=== PATIENT | female | born 1965 | race Caucasian/White ===

== ENCOUNTER 2017-10-21 09:43 | Emergency (ER) | payer SELFPAY ==
[~2017-10-21] VITALS: Ht 157.5 cm; Wt 77.1 kg
[2017-10-21 10:17] LABS: BASOPHILS # (AUTO) 0.1 10^3/uL (0.0-0.1); BASOPHILS % (AUTO) 1 % (0-10); EOSINOPHILS # (AUTO) 0.1 10^3/uL (0.0-0.3); EOSINOPHILS % (AUTO) 1 % (0-10); HEMATOCRIT 46 % (35-52); HEMOGLOBIN 16.4 G/DL (11.5-16.0); LYMPHOCYTES # (AUTO) 2.4 X 10^3 (1.0-4.0); LYMPHOCYTES % (AUTO) 21 % (12-44); MEAN CORPUSCULAR HEMOGLOBIN 32 PG (25-34); MEAN CORPUSCULAR HGB CONC 35 G/DL (32-36); MEAN CORPUSCULAR VOLUME 89 FL (80-99); MEAN PLATELET VOLUME 11.7 FL (7.4-10.4); MONOCYTES % (AUTO) 9 % (0-12); NEUTROPHILS # (AUTO) 7.8 X 10^3 (1.8-7.8); NEUTROPHILS % (AUTO) 68 % (42-75); PLATELET COUNT 189 10^3/uL (130-400); RED BLOOD COUNT 5.21 10^6/uL (4.35-5.85); RED CELL DISTRIBUTION WIDTH 12.6 % (10.0-14.5); WHITE BLOOD COUNT 11.4 10^3/uL (4.3-11.0)
--- NOTE | 2017-10-21 10:38 | Diagnostic Imaging Report ---
INDICATION: Left-sided chest pain. Time of exam 10:27 AM The heart size is normal. The pulmonary vascularity is unremarkable. The lungs are clear. No infiltrate, effusion or pneumothorax is detected. Impression: No acute cardiopulmonary process is detected. Dictated by: Dictated on workstation # [id number]
[2017-10-21 10:40] LABS: ALANINE AMINOTRANSFERASE 23 U/L (0-55); ALKALINE PHOSPHATASE 129 U/L (40-136); BILIRUBIN,TOTAL 0.8 MG/DL (0.1-1.0); BUN/CREATININE RATIO 13; CARBON DIOXIDE 26 MMOL/L (21-32); CHLORIDE 102 MMOL/L (98-107); CREATINE KINASE 41 U/L (29-168); CREATININE SERUM 0.71 MG/DL (0.60-1.30); GFR ESTIMATED > 60; GLUCOSE 345 MG/DL (70-105); LIPASE 42 U/L (8-78); MAGNESIUM 1.8 MG/DL (1.8-2.4); POTASSIUM 4.2 MMOL/L (3.6-5.0); SODIUM 134 MMOL/L (135-145); TOTAL PROTEIN 6.5 GM/DL (6.4-8.2)
[2017-10-21 10:44] LABS: PROTHROMBIN TIME PATIENT 13.7 SEC (12.2-14.7)
[2017-10-21 10:48] LABS: CREATINE KINASE MB 1.2 NG/ML (<6.6)
[2017-10-21] MEDS ORDERED: inSUlin (REGULAR) HUMAN 1 UNIT/0.01 ML (CHARGE PER UNIT) IV ONE (11:15)
[2017-10-21] MEDS ORDERED: NS IV 1000 ML 1,000 ML IV ONE (11:15)
[2017-10-21] MEDS ORDERED: NS 250 ML (IVPB) BAG IV ONE (11:30)
[2017-10-21] MEDS ORDERED: IOHEXOL 350 MG/ML 150 ML (OMNIPAQUE 350) VIAL IV ONE (11:30)
[2017-10-21] MEDS ORDERED: CATHETER FLUSH 10 ML SYR IV PRN (11:30)
--- NOTE | 2017-10-21 11:52 | Diagnostic Imaging Report ---
PROCEDURE: CT angiography of the chest with contrast. TECHNIQUE: Multiple contiguous axial images were obtained through the chest after uneventful bolus administration of intravenous contrast. Reconstructed CTA MIP acquisitions were also performed. INDICATION: Chest pain, burning under the left breast. FINDINGS: There are no intraluminal pulmonary arterial filling defects. There is no pulmonary arterial embolus. The thoracic aorta is patent and nonaneurysmal. There is no pleural or pericardial effusion. There is no pneumothorax. No acute infiltrate. The left breast and soft tissues of the chest wall extend outside the [id number]. There was no visualized soft tissue or osseous chest wall pathology. No fracture or bony destruction. No mass, adenopathy or fluid collection. IMPRESSION: Negative for PE or acute aortic pathology. Unremarkable exam. Clear lungs aside from slight right greater than left basilar partial atelectasis. Dictated by: Dictated on workstation # [id number]
[2017-10-21] MEDS ORDERED: KETOROLAC 30 MG/ML VIAL IVP ONE (12:30)
[2017-10-21 14:27] VITALS: BP 132/88
--- NOTE | 2017-10-22 07:27 | ED Chest Pain ---
General Chief Complaint: Chest Pain Stated Complaint: CP;LDDM Nursing Triage Note: c/o left sided chest pain below left breast. 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 PT ALSO LIFTS HEAVY PIECES OF STEEL AT WORK AROUND [id number] TODAY, SHE BEGAN HAVING "SHARP SHOOTING PAINS" FOR 15 MINUTES AND NOW IS A "DULL BURNING PAIN" IN THE AREA HAS HAD SLIGHT SHORTNESS OF BREATH WITH IT HAD NAUSEA AND DIZZINESS 15 MINUTES BEFORE THE PAIN STARTED, WHILE SHE WAS SWEEPING NO PALPITATIONS NO SWEATS NO SWELLING IN LEGS/ FEET OR PAIN IN CALVES PT HAS HAD MILD PRODUCTIVE COUGH AND MILD SINUS DRAINAGE FOR A FEW DAYS NO FEVER/SWEATS/CHILLS PT STATES YESTERDAY SHE WAS LIFTING 65 LB PIECES OF STEEL AND HAD "TINY SHARP PAINS" IN THIS SAME AREA, BUT WENT WAY AFTER A FEW SECONDS PT STATES SHE HAS HAD THIS SAME PROBLEM BEFORE BUT NEVER SOUGHT CARE PT STATES PAIN WAS 10/10 WITH SHARP SHOOTING PAINS, THEN RATES "DULL BURNING PAIN" 3-4/10 EMS GAVE 4 BABY ASPIRIN AND NTG X1--COMPLETE RESOLUTION OF PAIN PT HAS HISTORY OF HTN AND HAS BEEN ON MEDICATION X 1 YEAR--LISINOPRIL PT ALSO HAS HISTORY OF IDDM--DOES NOT ROUTINELY CHECK BLOOD SUGAR PCP: JABIER-TRACY, [facility] LINER Cinthya TRIMBLE--HAS NOT BEEN SEEN FOR 3-4 MONTHS Allergies and Home Medications Allergies Coded Allergies: No Known Drug Allergies (Unverified , 10/21/17) Patient Home Medication List Home Medication List Reviewed: Yes Review of Systems Constitutional: No chills, No diaphoresis, dizziness, No fever, No malaise, No weakness, other (STATES SHE ALWAYS HAS DIZZINESS WITH SHE IS REACHING UP OR WHEN SHE LAYS DOWN) EENTM: See HPI, Nose Congestion Respiratory: See HPI, Cough, Denies Orthopnea, Denies Shortness of Air, Denies SOA With Exertion, Denies Wheezing Cardiovascular: See HPI, Chest Pain, Denies Edema, Denies Irregular Heart Rate , Denies Lightheadedness, Denies Palpitations, Denies Syncope Gastrointestinal: See HPI, Denies Abdominal Pain, Nausea, Denies Vomiting Genitourinary: No Symptoms Reported (MENOPAUSAL--LMP IN 2016) Musculoskeletal: no symptoms reported, No back pain, No neck pain Skin: no symptoms reported Psychiatric/Neurological: Anxiety, Denies Headache, Denies Numbness, Denies Paresthesia, Denies Seizure, Denies Tingling, Denies Tremors Endocrine: See HPI, Denies Increased Thrist, Denies Increased Urine Hematologic/Lymphatic: No Symptoms Reported Past Ipzoaun-Mqachm-Hrxlno Hx Patient Social History Alcohol Use: Denies Use Recreational Drug Use: No Smoking Status: Current Everyday Smoker (1 PPD) Type Used: Cigarettes (1 PPD) Recent Foreign Travel: No Contact w/Someone Who Travel: No Recent Infectious Disease Expo: No Seasonal Allergies Seasonal Allergies: Yes Surgeries History of Surgeries: Yes (hernia repair as child, tubal ligation) Surgeries: Abdominal, Tubal Ligation Respiratory History of Respiratory Disorde: No Cardiovascular History of Cardiac Disorders: Yes Cardiac Disorders: Hypertension Neurological History of Neurological Disord: Yes Neurological Disorders: Neuropathy 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1 Pulse 91 B/P (MAP) 138/90 (106) Pulse Ox 93 O2 Delivery Room Air Capillary Refill : Less Than 3 Seconds General Appearance: No Apparent Distress, WD/WN, Other (HAIR TURQUOISE) HEENT: PERRL/EOMI Neck: Full Range of Motion, Normal Inspection, Non Tender, Supple, No Carotid Bruit, No JVD Respiratory: Normal Breath Sounds, No Accessory Muscle Use, No Respiratory Distress, Other (TENDERNESS TO LEFT LOWER ANTERIOR AND LATERAL RIB/CHEST WALL) Cardiovascular: Regular Rate, Rhythm, No Edema, No JVD, No Murmur, Normal Peripheral Pulses Gastrointestinal: Normal Bowel Sounds, No Organomegaly, No Pulsatile Mass, Non Tender, Soft Extremity: Normal Capillary Refill, Normal Inspection, Normal Range of Motion, Non Tender, No Calf Tenderness, No Pedal Edema Neurologic/Psychiatric: Alert, Oriented x3, No Motor/Sensory Deficits, Normal 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, 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 Skin: Normal Color, Warm/Dry, No Rash Progress/Results/Core Measures Results/Orders Lab Results Laboratory Tests Test 10/21/17 09:08 Range/Units White Blood Count 11.4 H 4.3-11.0 10^3/uL Red Blood Count 5.21 4.35-5.85 10^6/uL Hemoglobin 16.4 H 11.5-16.0 G/DL Hematocrit 46 35-52 % Mean Corpuscular Volume 89 80-99 FL Mean Corpuscular Hemoglobin 32 25-34 PG Mean Corpuscular Hemoglobin Concent 35 32-36 G/DL Red Cell Distribution Width 12.6 10.0-14.5 % Platelet Count 189 130-400 10^3/uL Mean Platelet Volume 11.7 H 7.4-10.4 FL Neutrophils (%) (Auto) 68 42-75 % Lymphocytes (%) (Auto) 21 12-44 % Monocytes (%) (Auto) 9 0-12 % Eosinophils (%) (Auto) 1 0-10 % Basophils (%) (Auto) 1 0-10 % Neutrophils # (Auto) 7.8 1.8-7.8 X 10^3 Lymphocytes # (Auto) 2.4 1.0-4.0 X 10^3 Monocytes # (Auto) 1.0 0.0-1.0 X 10^3 Eosinophils # (Auto) 0.1 0.0-0.3 10^3/uL Basophils # (Auto) 0.1 0.0-0.1 10^3/uL Prothrombin Time 13.7 12.2-14.7 SEC INR Comment 1.0 0.8-1.4 Activated Partial Thromboplast Time 25 24-35 SEC Sodium Level 134 L 135-145 MMOL/L Potassium Level 4.2 3.6-5.0 MMOL/L Chloride Level 102 98-107 MMOL/L Carbon Dioxide Level 26 21-32 MMOL/L Anion Gap 6 5-14 MMOL/L Blood Urea Nitrogen 9 7-18 MG/DL Creatinine 0.71 0.60-1.30 MG/DL Estimat Glomerular Filtration Rate > 60 BUN/Creatinine Ratio 13 Glucose Level 345 H 70-105 MG/DL Calcium Level 9.0 8.5-10.1 MG/DL Magnesium Level 1.8 1.8-2.4 MG/DL Total Bilirubin 0.8 0.1-1.0 MG/DL Aspartate Amino Transf (AST/SGOT) 16 5-34 U/L Alanine Aminotransferase (ALT/SGPT) 23 0-55 U/L Alkaline Phosphatase 129 40-136 U/L Total Creatine Kinase 41 29-168 U/L Creatine Kinase MB 1.2 <6.6 NG/ML Troponin I < 0.30 <0.30 NG/ML B-Type Natriuretic Peptide 24.6 <100.0 PG/ML Total Protein 6.5 6.4-8.2 GM/DL Albumin 4.0 3.2-4.5 GM/DL Lipase 42 8-78 U/L My Orders Orders - CITLALLI FISCHER DO Ekg Tracing (10/21/17 09:48) Continuous Ekg Monitoring (10/21/17 09:48) Saline Lock/Iv-Start (10/21/17 10:03) O2 (10/21/17 10:03) Monitor-Rhythm Ecg Trace Only (10/21/17 10:03) BNP (10/21/17 10:03) Cbc With Automated Diff (10/21/17 10:03) Comprehensive Metabolic Panel (10/21/17 10:03) Creatine Kinase (10/21/17 10:03) Creatine Kinase Mb (10/21/17 10:03) Lipase (10/21/17 10:03) Magnesium (10/21/17 10:03) Protime With Inr (10/21/17 10:03) Partial Thromboplastin Time (10/21/17 10:03) Troponin I (10/21/17 10:03) Chest 1 View, Ap/Pa Only (10/21/17 10:03) Ct Angio Chest W (10/21/17 11:15) Saline Lock/Iv-Start (10/21/17 11:15) Ns Iv 1000 Ml (Sodium Chloride 0.9%) (10/21/17 11:15) Insulin (Regular) Human (Humulin R (Per (3/23/18 11:15) Iohexol Injection (Omnipaque 350 Mg/Ml 1 (10/21/17 11:30) Di Iv Start (Assessment) .on IV start (10/21/17 11:18) Sodium Chloride Flush (Catheter Flush Sy (10/21/17 11:30) Ns (Ivpb) (Sodium Chloride 0.9%) (10/21/17 11:30) Ketorolac Injection (Toradol Injection) (10/21/17 12:30) Accucheck Stat ONCE (10/21/17 12:26) Vital Signs/I&O Vital Sign - Last 12Hours 10/21/17 09:43 Temp 98.1 Pulse 91 B/P (MAP) 138/90 (106) Pulse Ox 93 O2 Delivery Room Air Blood Pressure Mean: 106 Progress Note : Progress Note ON ARRIVAL, PT STATES SHE HAS NO PAIN OR ANY OTHER SYMPTOMS LATER DURING COURSE OF ER STAY, PT STATES SHE STILL HAS A SLIGHT DULL ACHE IN THE AREA--TORADOL GIVEN AND PAIN RESOLVED. PT HAD NO OTHER SYMPTOMS PT GIVEN IV FLUIDS AND INSULIN, BUT PT LEFT BEFORE REPEAT GLUCOSE WAS DONE AFTER INITIALLY AGREEING TO STAY FOR ADMIT/OBSERVATION, WHILE WAITING TO BE TRANSFERRED TO THE FLOOR, PT THEN DECIDED SHE DID NOT WANT TO STAY AND SIGNED OUT AMA AT 1355 ECG Initial ECG Impression Date: Oct 21, 2017 Initial ECG Impression Time: 09:49 Initial ECG Rate: 71 Initial ECG Rhythm: Normal Sinus Initial ECG Comparisson: No Previous ECG Available Diagnostic Imaging Comments CXR--NO ACUTE PROCESS, PER RADIOLOGIST REPORT CT CHEST ANGIOGRAM--NO ACUTE PROCESS PER RADIOLOGIST REPORTS @ 1221 Reviewed: Reviewed by Me Departure Communication (Admissions) Progress Notes 1227--SPOKE WITH DR. MICHAEL, ACCEPTS PT FOR ADMIT Impression Impression: Primary Impression: Chest pain Additional Impressions: IDDM (insulin dependent diabetes mellitus) HTN (hypertension) Smoker Disposition: 07 AGAINST MEDICAL ADVICE Condition: Against Medical Advice Departure-Patient Inst. Referrals: NO,LOCAL PHYSICIAN (PCP) Primary Care Physician CITLALLI FISCHER DO Oct 22, 2017 07:27
== END 2017-10-21 14:27 | disposition left against medical advice (07) ==
LOC: ER 09:45 → UNDOADMOB 12:30 → 4TH 12:30 → ER 14:27
DX: R07.89 Other chest pain (principal); E11.40 Type 2 diabetes mellitus with diabetic neuropathy, unspecified; I10 Essential (primary) hypertension; F41.9 Anxiety disorder, unspecified; F17.210 Nicotine dependence, cigarettes, uncomplicated; Z98.51 Tubal ligation status
CPT/HCPCS: 36415; 71045; 71275; 80053; 82550; 82553; 83690; 83735; 83880; 84484; 85025; 85610; 85730; 93005; 93041; 96374; 96375

== ENCOUNTER 2022-02-19 11:43 | Emergency (ER) | payer MEDICAID ==
[~2022-02-19] VITALS: Ht 162 cm; Wt 61.0 kg
[2022-02-19] MEDS ORDERED: ACETAMINOPHEN 500 MG TAB (TYLENOL) PO ONE (12:15)
--- NOTE | 2022-02-19 12:24 | ED Cough/URI ---
General Chief Complaint: COVID19 Suspect/Confirmed Stated Complaint: ARAYA,BODY ACHES,FEVER Nursing Triage Note: HEADACHE, BODYACHE, FEVER STARTING ON TUESDAY. Source: patient Exam Limitations: no limitations (EBONIE CHAPA) History of Present Illness Date Seen by Provider: Feb 19, 2022 Time Seen by Provider: 12:22 Initial Comments Patient is a 57-year-old female who who is a type II diabetic who presents ED with flulike symptoms. Symptoms started Tuesday night. She states she started not feeling well. Body aches fatigue malaise weakness. She felt warm subjective fever at home. She did vomit once on Tuesday. She did check her blood sugar at home which was around 130. She denies of any urinary symptoms such as frequent urination, dysuria. No specific cough but reports some chest discomfort with shortness of breath with her body pains. No history of coronary artery disease, CHF. She was febrile on arrival. Up-to-date on her COVID- vaccine. She states people at work tested positive for COVID. Denies of any diarrhea. Has been taking anti-inflammatories for her body aches and chills. Denies visual changes, sore throat, ear pain, neck pain, back pain, distal numbness and tingling into the upper and lower extremities, facial droop, slurred speech, confusion (EBONIE CHAPA) Allergies and Home Medications Allergies Coded Allergies: No Known Drug Allergies (Unverified , 10/21/17) Patient Home Medication List Home Medication List Reviewed: Yes (EBONIE CHAPA) Review of Systems Review of Systems Constitutional: chills; No diaphoresis; malaise EENTM: No ear pain, No blurred vision, No double vision Respiratory: No cough, No short of breath Skin: No change in color, No change in hair/nails Psychiatric/Neurological: Denies Anxiety, Denies Depressed Hematologic/Lymphatic: Denies See HPI, Denies Anemia (EBONIE CHAPA) All Other Systems Reviewed Negative Unless Noted: Yes (EBONIE CHAPA) Past Dtsqgdg-Gvctyz-Nyjwse Hx Patient Social History Smoking Status: Current Everyday Smoker Substance use?: No Alcohol Use?: No (EBONIE CHAPA) Immunizations Up To Date Second COVID19 Vaccination Simon: LAST YEAR COVID19 Vaccine 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: [employer] (EBONIE CHAPA) Seasonal Allergies Seasonal Allergies: Yes (EBONIE CHAPA) Past Medical History Surgeries: Yes (hernia repair as child, tubal ligation) Abdominal, Tubal Ligation Respiratory: No Cardiac: Yes Hypertension Neurological: Yes Neuropathy 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 oz. 77.158660jq; 23.00 BMI Method:Estimated General Appearance: WD/WN, no apparent distress Eyes: Bilateral Eye Normal Inspection, Bilateral Eye PERRL, Bilateral Eye EOMI HEENT: PERRL/EOMI, normal ENT inspection, TMs normal, pharynx normal Neck: non-tender, full range of motion, supple, normal inspection Respiratory: chest non-tender, lungs clear, normal breath sounds, no respiratory distress, no accessory muscle use Cardiovascular: no gallop, no JVD, no murmur, tachycardia Gastrointestinal: normal bowel sounds, non tender, soft, no organomegaly Extremities: normal range of motion, non-tender, normal inspection, no pedal edema 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, no motor/sensory deficits, alert, normal mood/affect, oriented x 3 Skin: normal color, warm/dry (EBONIE CHAPA) Focused Exam Lactate Level 02/19/22 13:17: Lactic Acid Level 0.99 (STACIE MOODY MD) Lactic Acid Level Laboratory Tests Test 02/19/22 13:17 Lactic Acid Level 0.99 MMOL/L (0.50-2.00) (STACIE MOODY MD) Progress/Results/Core Measures Suspected Sepsis SIRS Temperature: Pulse: 100 Respiratory Rate: 16 Laboratory Tests 02/19/22 12:32: White Blood Count 18.3H Blood Pressure 144 /84 Mean: 104 02/19/22 13:17: Lactic Acid Level 0.99 Laboratory Tests 02/19/22 12:32: Creatinine 0.62, Platelet Count 197, Total Bilirubin 0.7 (EBONIE CHAPA) Results/Orders Lab Results Laboratory Tests Test 02/19/22 11:58 02/19/22 12:03 02/19/22 12:32 02/19/22 12:36 Range/Units Influenza Type A (RT-PCR) Not Detected Not Detecte Influenza Type B (RT-PCR) Not Detected Not Detecte SARS-CoV-2 RNA (RT-PCR) Not Detected Not Detecte Glucometer 93 70-110 MG/DL White Blood Count 18.3 H 4.3-11.0 10^3/uL Red Blood Count 5.18 H 3.80-5.11 10^6/uL Hemoglobin 16.2 H 11.5-16.0 g/dL Hematocrit 50 35-52 % Mean Corpuscular Volume 96 80-99 fL Mean Corpuscular Hemoglobin 31 25-34 pg Mean Corpuscular Hemoglobin Concent 33 32-36 g/dL Red Cell Distribution Width 12.0 10.0-14.5 % Platelet Count 197 130-400 10^3/uL Mean Platelet Volume 11.4 9.0-12.2 fL Immature Granulocyte % (Auto) 1 % Neutrophils (%) (Auto) 75 42-75 % Lymphocytes (%) (Auto) 10 L 12-44 % Monocytes (%) (Auto) 14 H 0-12 % Eosinophils (%) (Auto) 0 0-10 % Basophils (%) (Auto) 1 0-10 % Neutrophils # (Auto) 13.7 H 1.8-7.8 10^3/uL Lymphocytes # (Auto) 1.8 1.0-4.0 10^3/uL Monocytes # (Auto) 2.6 H 0.0-1.0 10^3/uL Eosinophils # (Auto) 0.0 0.0-0.3 10^3/uL Basophils # (Auto) 0.1 0.0-0.1 10^3/uL Immature Granulocyte # (Auto) 0.1 0.0-0.1 10^3/uL Neutrophils % (Manual) 77 % Lymphocytes % (Manual) 9 % Monocytes % (Manual) 12 % Eosinophils % (Manual) 1 % Basophils % (Manual) 0 % Band Neutrophils 1 % Blood Morphology Comment NORMAL Sodium Level 136 135-145 MMOL/L Potassium Level 3.7 3.6-5.0 MMOL/L Chloride Level 102 98-107 MMOL/L Carbon Dioxide Level 18 L 21-32 MMOL/L Anion Gap 16 H 5-14 MMOL/L Blood Urea Nitrogen 12 7-18 MG/DL Creatinine 0.62 0.60-1.30 MG/DL Estimat Glomerular Filtration Rate 104 BUN/Creatinine Ratio 19 Glucose Level 88 70-105 MG/DL Calcium Level 9.5 8.5-10.1 MG/DL Corrected Calcium 9.6 8.5-10.1 MG/DL Magnesium Level 1.9 1.6-2.4 MG/DL Total Bilirubin 0.7 0.1-1.0 MG/DL Aspartate Amino Transf (AST/SGOT) 14 5-34 U/L Alanine Aminotransferase (ALT/SGPT) 13 0-55 U/L Alkaline Phosphatase 116 40-136 U/L Troponin I < 0.028 <0.028 NG/ML Total Protein 7.0 6.4-8.2 GM/DL Albumin 3.9 3.2-4.5 GM/DL Urine Color YELLOW Urine Clarity CLEAR Urine pH 5.5 5-9 Urine Specific Elfrida 1.025 H 1.016-1.022 Urine Protein NEGATIVE NEGATIVE Urine Glucose (UA) 3+ H NEGATIVE Urine Ketones 3+ H NEGATIVE Urine Nitrite NEGATIVE NEGATIVE Urine Bilirubin 1+ H NEGATIVE Urine Urobilinogen 0.2 < = 1.0 MG/DL Urine Leukocyte Esterase NEGATIVE NEGATIVE Urine RBC (Auto) TRACE-I H NEGATIVE Urine RBC RARE /HPF Urine WBC RARE /HPF Urine Squamous Epithelial Cells 5-10 /HPF Urine Crystals NONE /LPF Urine Bacteria TRACE /HPF Urine Casts NONE /LPF Urine Mucus SMALL H /LPF Urine Culture Indicated NO Test 02/19/22 13:17 Range/Units Lactic Acid Level 0.99 0.50-2.00 MMOL/L B-Type Natriuretic Peptide < 10.0 <100.0 PG/ML (STACIE MOODY MD) Medications Given in ED Current Medications Medications Dose Ordered Sig/Angela Route Start Time Stop Time Status Last Admin Dose Admin Acetaminophen 1,000 mg ONCE ONCE PO 02/19/22 12:15 02/19/22 12:16 DC 02/19/22 12:31 1,000 MG (STACIE MOODY MD) Vital Signs/I&O 02/19/22 02/19/22 11:50 14:08 Temp 37.9 37.1 Pulse 100 73 Resp 16 16 B/P (MAP) 144/84 (104) 112/63 Pulse Ox 95 98 O2 Delivery Room Air Room Air (STACIE MOODY MD) Vital Signs/I&O Capillary Refill : Less Than 3 Seconds (EBONIE CHAPA) Blood Pressure Mean: 104 Point of Care Testing Finger Stick Blood Glucose: 93 (EBONIE CHAPA) ECG Comment Sinus rhythm, 94 bpm, QRS duration 83 MS, QTc 392 MS (EBONIE CHAPA) Departure Communication (PCP) Patient's initial symptoms present like COVID or flulike. She tested negative for COVID and flu. Lab work was drawn which showed elevated leukocytosis. She was slightly tachycardic. Blood cultures was ordered and lactic acid. Normal lactic acid. Normal electrolytes, kidney function, liver function. She reported some chest discomfort with some shortness of breath. Cardiac work-up unremarkable. EKG sinus rhythm. Chest x-ray was negative for pneumonia. Urinalysis was negative for infection. She did appear dehydrated. Patient Was given a liter of fluid. Improvement of her tachycardia. Patient Was given Tylenol with improvement of her headache and fever. She states she was feeling much better. Patient had no abdominal tenderness on palpation. No meningeal signs. Oral exam and bilateral TMs clear. Unknown source of the fever. Discussed with patient that this could still be viral however somewhat concerning for the elevated white blood count. She she was given Rocephin 1mg here. Antibiotics was not given at discharge secondary to no obvious source of infection. Recommend recheck of lab work with primary care physician in 2 days. If any worsening symptoms return back to ED for further evaluation. Discussed the importance of oral hydration and anti-inflammatories for fever and body aches. If any worsening symptoms such as shortness of breath, chest pain or developing abdominal pain or any urinary symptoms to return back to ED for further evaluation (EBONIE CHAPA) Impression Primary Impression: Fever Additional Impression: Leukocytosis Disposition: 01 HOME, SELF-CARE Condition: Stable Departure-Patient Inst. Decision time for Depature: 12:24 (EBONIE CHAPA) [facility]: [facility] [place] PHYSICIAN (PCP) Primary Care Physician Patient Instructions: COVID-19 (DC), Fever of Unknown Origin Add. Discharge Instructions: Continue with Tylenol ibuprofen at home for fever. Recommend oral hydration. If any worsening symptoms to return back to ED All discharge instructions reviewed with patient and/or family. Voiced un derstanding. ATTENDING PHYSICIAN NOTE: I was physically present as attending physician in the emergency department during the care of this patient, but I was not directly involved in the decision making or delivery of care for this patient. (STACIE MOODY MD) EBONIE CHAPA Feb 19, 2022 12:24 STACIE MOODY MD Feb 19, 2022 20:06
[2022-02-19 12:39] LABS: BASOPHILS # (AUTO) 0.1 10^3/uL (0.0-0.1); BASOPHILS % (AUTO) 1 % (0-10); EOSINOPHILS % (AUTO) 0 % (0-10); HEMATOCRIT 50 % (35-52); HEMOGLOBIN 16.2 g/dL (11.5-16.0); LYMPHOCYTES # (AUTO) 1.8 10^3/uL (1.0-4.0); LYMPHOCYTES % (AUTO) 10 % (12-44); MEAN CORPUSCULAR HEMOGLOBIN 31 pg (25-34); MEAN CORPUSCULAR HGB CONC 33 g/dL (32-36); MEAN CORPUSCULAR VOLUME 96 fL (80-99); MEAN PLATELET VOLUME 11.4 fL (9.0-12.2); MONOCYTES # (AUTO) 2.6 10^3/uL (0.0-1.0); MONOCYTES % (AUTO) 14 % (0-12); NEUTROPHILS # (AUTO) 13.7 10^3/uL (1.8-7.8); NEUTROPHILS % (AUTO) 75 % (42-75); PLATELET COUNT 197 10^3/uL (130-400); WHITE BLOOD COUNT 18.3 10^3/uL (4.3-11.0)
[2022-02-19 12:43] LABS: CLARITY,URINE CLEAR; COLOR,URINE YELLOW; GLUCOSE, URINE (UA) 3+ (NEGATIVE); KETONES,URINE 3+ (NEGATIVE); LEUKOCYTE ESTERASE ,URINE NEGATIVE (NEGATIVE); NITRITE,URINE NEGATIVE (NEGATIVE); PH,URINE 5.5 (5-9); PROTEIN,URINE NEGATIVE (NEGATIVE)
[2022-02-19 12:54] LABS: ALBUMIN 3.9 GM/DL (3.2-4.5); CHLORIDE 102 MMOL/L (98-107); POTASSIUM 3.7 MMOL/L (3.6-5.0); SODIUM 136 MMOL/L (135-145)
[2022-02-19 12:56] LABS: CALCIUM 9.5 MG/DL (8.5-10.1)
[2022-02-19 12:57] LABS: GLUCOSE 88 MG/DL (70-105)
[2022-02-19 12:58] LABS: CARBON DIOXIDE 18 MMOL/L (21-32)
[2022-02-19 12:59] LABS: BILIRUBIN,TOTAL 0.7 MG/DL (0.1-1.0)
[2022-02-19 13:00] LABS: ALKALINE PHOSPHATASE 116 U/L (40-136); CREATININE SERUM 0.62 MG/DL (0.60-1.30); GFR ESTIMATED 104
[2022-02-19 13:01] LABS: BUN/CREATININE RATIO 19
[2022-02-19 13:03] LABS: ALANINE AMINOTRANSFERASE 13 U/L (0-55); MAGNESIUM 1.9 MG/DL (1.6-2.4)
--- NOTE | 2022-02-19 13:04 | Diagnostic Imaging Report ---
Indication: Body aches and headache. Time of Exam: 1:00 p.m. Correlation is made with prior chest from 10/21/2017. Findings: The heart size is normal. The pulmonary vascularity is unremarkable. The lungs are clear. No infiltrate, effusion or pneumothorax is detected. Impression: No acute cardiopulmonary process is detected. Dictated by: Dictated on workstation # [id number]
[2022-02-19 13:07] LABS: BACTERIA,URINE TRACE /HPF; BILIRUBIN,URINE 1+ (NEGATIVE); RBC,URINE RARE /HPF; WBC,URINE RARE /HPF
[2022-02-19] MEDS ORDERED: cefTRIAXone 1 GM PRE-MIX 50 ML IV STA (13:10)
[2022-02-19] MEDS ORDERED: NS IV 1000 ML 1,000 ML IV STA (13:10)
[2022-02-19 13:19] LABS: BAND NEUTROPHILS 1 %; BASOPHILS % (MANUAL) 0 %; EOSINOPHILS % (MANUAL) 1 %; LYMPHOCYTES % (MANUAL) 9 %; MONOCYTES % (MANUAL) 12 %; NEUTROPHILS % (MANUAL) 77 %; RBC MORPH NORMAL
[2022-02-19 14:08] VITALS: BP 112/63
== END 2022-02-19 14:08 | disposition home or self-care (01) ==
LOC: EDUNIT# 11:43 → ER 11:46
DX: D72.829 Elevated white blood cell count, unspecified (principal); R00.0 Tachycardia, unspecified; E11.9 Type 2 diabetes mellitus without complications; F17.200 Nicotine dependence, unspecified, uncomplicated; Z20.822 Contact with and (suspected) exposure to COVID-19; Z79.4 Long term (current) use of insulin
CPT/HCPCS: 36415; 71045; 80053; 81000; 82947; 83605; 83735; 83880; 84484; 85007; 85027; 87040; 87636; 93005

== ENCOUNTER 2022-11-06 13:44 | Emergency (ER) | payer MEDICAID ==
[~2022-11-06] VITALS: Ht 162 cm; Wt 59.0 kg
--- NOTE | 2022-11-06 13:54 | ED General ---
General Chief Complaint: Glucose Problems Stated Complaint: SOA Nursing Triage Note: ARRIVED VIA EMS FROM HOME WITH COMPLAINTS OF NOT FEELING WELL ET THOUGHT HER GLUCOSE WAS HIGH. EMS REPORTS BS OF 268. PT DOES NOT HAVE A GLUCOMETER AT HOME. RECENT CHANGE FROM INSULIN TO ORAL MEDS. Source of Information: Patient (PT IS SOMEWHAT LIMITED AND VERY VAGUE HISTORIAN), EMS, Old Records History of Present Illness Date Seen by Provider: Nov 06, 2022 Time Seen by Provider: 13:43 Initial Comments PT ARRIVES VIA [facility] FROM HOME IN [place] PT STATES SHE JUST DOESN'T FEEL GOOD, THINKS HER BLOOD SUGAR IS HIGH OR LOW. SHE IS DIABETIC, STATES 3-4 WEEKS AGO, SHE WAS STARTED ON JANUVIA AND JARDIANCE, AND HER LEVEMIR WAS STOPPED. SHE DOES NOT HAVE A GLUCOMETER AT HOME, AND DOES NOT FOLLOW ANY DIET. STATES SHE FEELS "DIZZY--FUNNY IN MY HEAD" SHE DOES NOT VOICE ANY OTHER SPECIFIC COMPLAINTS. SHE DENIES FEVER/SWEATS/CHILLS SHE DENIES ANY COLD SYMPTOMS, COUGH, ETC. SHE DENIES CHEST PAIN OR SHORTNESS OF BREATH SHE DENIES NAUSEA/VOMITING/DIARRHEA OR ABDOMINAL PAIN . SHE STATES SHE HASN'T HAD AN APPETITE TODAY--ATE PART OF A MUFFIN THIS MORNING, NOTHING ELSE TO EAT TODAY. SHE DOES NOT REPORT THIRST. SHE DENIES ANY URINARY SYMPTOMS BLOOD GLUCOSE WAS 268 BY EMS MUCH LATER, PT ADMITS THAT SHE HAS NOT BEEN TAKING THE JARDIANCE AND JANUIVA "FOR A FEW WEEKS" ( PT IS EXTREMELY VAGUE ABOUT THIS, AND POSSIBLY SHE DID NOT TAKE THEM AT ALL), AND "DECIDED TO PUT MYSELF BACK ON METFORMIN" SHE HAS NOT BEEN TAKING THE MEFORMIN, OTHER THAN SHE TOOK 1 PILL YESTERDAY. SHE HAS NOT DISCUSSED ANY OF THIS WITH DR. NUGENT, AND HAS NOT ATTEMPTED TO CONTACT DR. NUGENT OR SEE ANYONE AT ANY TIME FOR THIS PROBLEM. ADDITIONALLY, SHE HAS HTN, HYPERLIPIDEMIA, NEUROPATHY PCP: DR. NUGENT AT [facility] Allergies and Home Medications Allergies Coded Allergies: No Known Drug Allergies (Unverified , 10/21/17) Review of Systems Review of Systems Constitutional: see HPI; No chills, No diaphoresis; dizziness; No fever; malaise EENTM: no symptoms reported Respiratory: no symptoms reported Cardiovascular: no symptoms reported Gastrointestinal: see HPI; No abdominal pain, No constipation, No diarrhea; loss of appetite; No nausea, No vomiting Genitourinary: no symptoms reported Musculoskeletal: no symptoms reported Skin: no symptoms reported Psychiatric/Neurological: No Symptoms Reported Hematologic/Lymphatic: No Symptoms Reported Immunological/Allergic: no symptoms reported Past Juhzlis-Ldahvn-Adtfrl Hx Patient Social History Tobacco Use?: Yes Tobacco type used: Cigarettes Smoking Status: Current Everyday Smoker Substance use?: No Alcohol Use?: No Immunizations Up To Date First/Initial COVID19 Vaccinat: UNKNOWN Second COVID19 Vaccination Simon: LAST YEAR COVID19 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 Seasonal Allergies Seasonal Allergies: Yes Past Medical History Surgeries: Yes (hernia repair as child, tubal ligation) Abdominal, Tubal Ligation Respiratory: No Cardiac: Yes Hypertension 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 Genitourinary: No Gastrointestinal: No Musculoskeletal: Yes (GENERALIZED JOINT PAIN ) Endocrine: Yes Diabetes, Insulin dep HEENT: No Cancer: No Psychosocial: Yes Anxiety Integumentary: No Blood Disorders: No Family Medical History SOCIAL HISTORY: -SMOKES 1 PPD -DENIES ETOH USE -DENIES DRUG USE PAST SURGICAL HISTORY: -BILATERAL TUBAL LIGATION -HERNIA REPAIR CHILD Physical Exam Vital Signs Vital Signs - First Documented 11/06/22 13:45 Temp 35.8 Pulse 90 Resp 19 B/P (MAP) 161/84 (109) Pulse Ox 98 O2 Delivery Room Air Capillary Refill : Less Than 3 Seconds Height, Weight, BMI Height: 5'2.00" Weight: 170lbs. oz. 77.835710bp; 22.00 BMI Method:Estimated General Appearance: No Apparent Distress, WD/WN, Other (DOES NOT APPEAR ILL OR TO BE IN ANY DISCOMFORT OR DISTRESS) HEENT: PERRL/EOMI, Moist Mucous Membranes Neck: Normal Inspection Respiratory: Lungs Clear, Normal Breath Sounds, No Accessory Muscle Use, No Respiratory Distress Cardiovascular: Regular Rate, Rhythm, No Edema, No JVD, No Murmur, Normal Peripheral Pulses Gastrointestinal: Normal Bowel Sounds, No Organomegaly, No Pulsatile Mass, Non Tender, Soft Back: Normal Inspection, No CVA Tenderness, No Vertebral Tenderness Extremity: Normal Capillary Refill, Normal Inspection, Normal Range of Motion, Non Tender, No Calf Tenderness, No Pedal Edema Neurologic/Psychiatric: Alert, Oriented x3, No Motor/Sensory Deficits (HX 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), 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 Norm as Tested Skin: Normal Color, Warm/Dry; No Rash Focused Exam Lactate Level 11/06/22 13:55: Lactic Acid Level 1.79 Lactic Acid Level Laboratory Tests Test 11/06/22 13:55 Lactic Acid Level 1.79 MMOL/L (0.50-2.00) Progress/Results/Core Measures Suspected Sepsis SIRS Temperature: Pulse: 90 Respiratory Rate: 19 Laboratory Tests 11/06/22 13:49: White Blood Count 14.8H Blood Pressure 161 /84 Mean: 109 11/06/22 13:55: Lactic Acid Level 1.79 Laboratory Tests 11/06/22 13:49: Creatinine 0.70, Platelet Count 190, Total Bilirubin 0.9 Results/Orders Lab Results Laboratory Tests Test 11/06/22 13:49 11/06/22 13:50 11/06/22 13:54 11/06/22 13:55 Range/Units White Blood Count 14.8 H 4.3-11.0 10^3/uL Red Blood Count 5.38 H 3.80-5.11 10^6/uL Hemoglobin 16.8 H 11.5-16.0 g/dL Hematocrit 48 35-52 % Mean Corpuscular Volume 89 80-99 fL Mean Corpuscular Hemoglobin 31 25-34 pg Mean Corpuscular Hemoglobin Concent 35 32-36 g/dL Red Cell Distribution Width 12.3 10.0-14.5 % Platelet Count 190 130-400 10^3/uL Mean Platelet Volume 11.7 9.0-12.2 fL Immature Granulocyte % (Auto) 0 % Neutrophils (%) (Auto) 71 42-75 % Lymphocytes (%) (Auto) 20 12-44 % Monocytes (%) (Auto) 7 0-12 % Eosinophils (%) (Auto) 1 0-10 % Basophils (%) (Auto) 1 0-10 % Neutrophils # (Auto) 10.6 H 1.8-7.8 10^3/uL Lymphocytes # (Auto) 3.0 1.0-4.0 10^3/uL Monocytes # (Auto) 1.0 0.0-1.0 10^3/uL Eosinophils # (Auto) 0.2 0.0-0.3 10^3/uL Basophils # (Auto) 0.1 0.0-0.1 10^3/uL Immature Granulocyte # (Auto) 0.1 0.0-0.1 10^3/uL Neutrophils % (Manual) 68 % Lymphocytes % (Manual) 20 % Monocytes % (Manual) 8 % Band Neutrophils 4 % Platelet Estimate ADEQUATE Blood Morphology Comment NORMAL Urine Color YELLOW Urine Clarity CLEAR Urine pH 6.0 5-9 Urine Specific [place] <=1.005 1.016-1.022 Urine Protein NEGATIVE NEGATIVE Urine Glucose (UA) 3+ H NEGATIVE Urine Ketones NEGATIVE NEGATIVE Urine Nitrite NEGATIVE NEGATIVE Urine Bilirubin NEGATIVE NEGATIVE Urine Urobilinogen 0.2 < = 1.0 MG/DL Urine Leukocyte Esterase NEGATIVE NEGATIVE Urine RBC (Auto) NEGATIVE NEGATIVE Urine RBC NONE /HPF Urine WBC NONE /HPF Urine Squamous Epithelial Cells RARE /HPF Urine Crystals NONE /LPF Urine Bacteria NEGATIVE /HPF Urine Casts NONE /LPF Urine Mucus NEGATIVE /LPF Urine Culture Indicated NO Sodium Level 134 L 135-145 MMOL/L Potassium Level 3.8 3.6-5.0 MMOL/L Chloride Level 103 98-107 MMOL/L Carbon Dioxide Level 20 L 21-32 MMOL/L Anion Gap 11 5-14 MMOL/L Blood Urea Nitrogen 10 7-18 MG/DL Creatinine 0.70 0.60-1.30 MG/DL Estimat Glomerular Filtration Rate 101 BUN/Creatinine Ratio 14 Glucose Level 381 H 70-105 MG/DL Calcium Level 8.9 8.5-10.1 MG/DL Corrected Calcium 8.8 8.5-10.1 MG/DL Magnesium Level 1.8 1.6-2.4 MG/DL Total Bilirubin 0.9 0.1-1.0 MG/DL Aspartate Amino Transf (AST/SGOT) 15 5-34 U/L Alanine Aminotransferase (ALT/SGPT) 22 0-55 U/L Alkaline Phosphatase 127 40-136 U/L Myoglobin 14.7 10.0-92.0 NG/ML Total Protein 6.9 6.4-8.2 GM/DL Albumin 4.1 3.2-4.5 GM/DL Amylase Level 47 25-125 U/L Lipase 29 8-78 U/L Beta-Hydroxybutyrate (Chem panel) 0.26 0.00-0.27 MMOL/L Urine Opiates Screen NEGATIVE NEGATIVE Urine Oxycodone Screen NEGATIVE NEGATIVE Urine Methadone Screen NEGATIVE NEGATIVE Urine Propoxyphene Screen NEGATIVE NEGATIVE Urine Barbiturates Screen NEGATIVE NEGATIVE Ur Tricyclic Antidepressants Screen NEGATIVE NEGATIVE Urine Phencyclidine Screen NEGATIVE NEGATIVE Urine Amphetamines Screen NEGATIVE NEGATIVE Urine Methamphetamines Screen NEGATIVE NEGATIVE Urine Benzodiazepines Screen NEGATIVE NEGATIVE Urine Cocaine Screen NEGATIVE NEGATIVE Urine Cannabinoids Screen NEGATIVE NEGATIVE Serum Alcohol < 10 <10 MG/DL Glucometer 343 H 70-110 MG/DL Influenza Type A (RT-PCR) Not Detected Not Detecte Influenza Type B (RT-PCR) Not Detected Not Detecte SARS-CoV-2 RNA (RT-PCR) Not Detected Not Detecte Lactic Acid Level 1.79 0.50-2.00 MMOL/L Test 11/06/22 15:56 Range/Units Glucometer 249 H 70-110 MG/DL My Orders Orders - CITLALLI FISCHER DO Accucheck Stat ONCE (11/06/22 13:47) Ed Iv/Invasive Line Start (11/06/22 13:47) Monitor-Rhythm Ecg Trace Only (11/06/22 13:47) Alcohol (11/06/22 13:47) Amylase (11/06/22 13:47) Cbc With Automated Diff (11/06/22 13:47) Comprehensive Metabolic Panel (11/06/22 13:47) Drug Screen Stat (Urine) (11/06/22 13:47) Lactic Acid Analyzer (11/06/22 13:47) Lipase (11/06/22 13:47) Magnesium (11/06/22 13:47) Ua Culture If Indicated (11/06/22 13:47) Myoglobin Serum (11/06/22 13:47) Chest 1 View, Ap/Pa Only (11/06/22 13:47) Ed Iv/Invasive Line Start (11/06/22 13:47) Ns Iv 1000 Ml (Sodium Chloride 0.9%) (11/06/22 14:00) Beta Hydroxybutyrate (11/06/22 13:49) Hemoglobin A1c (11/06/22 13:49) Covid 19 Inhouse Test (11/06/22 13:50) Influenza A And B By Pcr (11/06/22 13:50) Isolation Central Supply Req (11/06/22 13:50) Manual Differential (11/06/22 13:49) Insulin (Regular) Human (Novolin R (Per (11/06/22 14:30) Ed Iv/Invasive Line Start (11/06/22 14:22) Ns Iv 1000 Ml (Sodium Chloride 0.9%) (11/06/22 14:30) Accucheck Stat ONCE (11/06/22 15:51) Medications Given in ED Current Medications Medications Dose Ordered Sig/Angela Route Start Time Stop Time Status Last Admin Dose Admin Insulin Human Regular 10 unit ONCE ONCE SC 11/06/22 14:30 11/06/22 14:31 DC 11/06/22 14:41 10 UNIT Vital Signs/I&O 11/06/22 13:45 Temp 35.8 Pulse 90 Resp 19 B/P (MAP) 161/84 (109) Pulse Ox 98 O2 Delivery Room Air Capillary Refill : Less Than 3 Seconds Blood Pressure Mean: 109 Point of Care Testing Finger Stick Blood Glucose: 343 Progress Note : Progress Note PPE WORN COVID AND FLU TESTING DONE ACCUCHECK ON ARRIVAL 343 GIVEN: -IV FLUIDS -INSULIN NO EVIDENCE OF DKA, NO SIGNS OF INFECTION. BLOOD GLUCOSE DOWN TO 249 BY ACCUCHECK UNEVENTFUL ER STAY REVIEWED PRIOR RECORDS--2 ER VISITS. LENGTHY DISCUSSION WITH PT ABOUT IMPORTANCE OF REFRAINING FROM SELF-MEDICATING, TAKING THE MEDICATIONS EXACTLY PRESCRIBED AND NOT MISSING DOSES OF MEDICATIONS, FOLLOWING UP WITH DR. NUGENT, OBTAINING A GLUCOMETER AND CHECKING HER BLOOD SUGARS, SEEING A PERMIT COORDINATOR AND FOLLOWING A DIABETIC DIET. Departure Impression Primary Impression: Uncontrolled diabetes mellitus Additional Impression: Non-compliance Disposition: 01 HOME, SELF-CARE Condition: Improved Departure-Patient Inst. Decision time for Depature: 16:05 Referrals: NAMAN NUGENT V DO Patient Instructions: Carb Counting for Adults With Diabetes, Diabetic Meal Planning , How to Keep Track of Your Blood Sugar, How to Prevent High Blood Sugar Emergencies in Diabetes, Type 2 Diabetes (DC) Add. Discharge Instructions: TAKE JARDIANCE AND JANUVIA EVERY DAY, EXACTLY YOUR DR PRESCRIBED FOLLOW UP WITH YOUR DR THIS WEEK FOR FURTHER CARE--CALL TODAY TO SCHEDULE AN APPOINTMENT. All discharge instructions reviewed with patient and/or family. Voiced understanding. CITLALLI FISCHER DO Nov 06, 2022 13:54
[2022-11-06 13:56] LABS: BASOPHILS # (AUTO) 0.1 10^3/uL (0.0-0.1); BASOPHILS % (AUTO) 1 % (0-10); EOSINOPHILS # (AUTO) 0.2 10^3/uL (0.0-0.3); EOSINOPHILS % (AUTO) 1 % (0-10); HEMATOCRIT 48 % (35-52); HEMOGLOBIN 16.8 g/dL (11.5-16.0); LYMPHOCYTES % (AUTO) 20 % (12-44); MEAN CORPUSCULAR HEMOGLOBIN 31 pg (25-34); MEAN CORPUSCULAR HGB CONC 35 g/dL (32-36); MEAN CORPUSCULAR VOLUME 89 fL (80-99); MEAN PLATELET VOLUME 11.7 fL (9.0-12.2); MONOCYTES % (AUTO) 7 % (0-12); NEUTROPHILS # (AUTO) 10.6 10^3/uL (1.8-7.8); NEUTROPHILS % (AUTO) 71 % (42-75); PLATELET COUNT 190 10^3/uL (130-400); WHITE BLOOD COUNT 14.8 10^3/uL (4.3-11.0)
[2022-11-06] MEDS ORDERED: NS IV 1000 ML 1,000 ML IV SCH ×2 (14:00→14:30)
[2022-11-06 14:08] LABS: BILIRUBIN,URINE NEGATIVE (NEGATIVE); CLARITY,URINE CLEAR; COLOR,URINE YELLOW; GLUCOSE, URINE (UA) 3+ (NEGATIVE); KETONES,URINE NEGATIVE (NEGATIVE); LEUKOCYTE ESTERASE ,URINE NEGATIVE (NEGATIVE); NITRITE,URINE NEGATIVE (NEGATIVE); PROTEIN,URINE NEGATIVE (NEGATIVE)
[2022-11-06 14:09] LABS: BAND NEUTROPHILS 4 %; LYMPHOCYTES % (MANUAL) 20 %; MONOCYTES % (MANUAL) 8 %; NEUTROPHILS % (MANUAL) 68 %; PLATELET ESTIMATE ADEQUATE; RBC MORPH NORMAL
[2022-11-06 14:10] LABS: ALBUMIN 4.1 GM/DL (3.2-4.5); CHLORIDE 103 MMOL/L (98-107); POTASSIUM 3.8 MMOL/L (3.6-5.0); SODIUM 134 MMOL/L (135-145)
[2022-11-06 14:11] LABS: CALCIUM 8.9 MG/DL (8.5-10.1)
[2022-11-06 14:12] LABS: AMYLASE 47 U/L (25-125); GLUCOSE 381 MG/DL (70-105); TOTAL PROTEIN 6.9 GM/DL (6.4-8.2)
[2022-11-06 14:13] LABS: CARBON DIOXIDE 20 MMOL/L (21-32)
[2022-11-06 14:14] LABS: BILIRUBIN,TOTAL 0.9 MG/DL (0.1-1.0)
[2022-11-06 14:16] LABS: ALKALINE PHOSPHATASE 127 U/L (40-136); GFR ESTIMATED 101
[2022-11-06 14:17] LABS: BUN/CREATININE RATIO 14
[2022-11-06 14:19] LABS: ALANINE AMINOTRANSFERASE 22 U/L (0-55); MAGNESIUM 1.8 MG/DL (1.6-2.4)
[2022-11-06 14:21] LABS: LIPASE 29 U/L (8-78)
[2022-11-06 14:24] LABS: AMPHETAMINE SCREEN, URINE NEGATIVE (NEGATIVE); BARBITURATE SCREEN URINE NEGATIVE (NEGATIVE); BENZODIAZEPINES SCREEN URINE NEGATIVE (NEGATIVE); CANNABINOID SCREEN, URINE NEGATIVE (NEGATIVE); COCAINE SCREEN URINE NEGATIVE (NEGATIVE); METHADONE STAT NEGATIVE (NEGATIVE); OPIATE SCREEN URINE NEGATIVE (NEGATIVE); OXYCODONE STAT NEGATIVE (NEGATIVE); PROPOXYPHENE STAT NEGATIVE (NEGATIVE); TRICYCLIC ANTIDEPRESSANTS SCRE NEGATIVE (NEGATIVE)
[2022-11-06 14:26] LABS: BACTERIA,URINE NEGATIVE /HPF; SQUAMOUS EPITHELIAL CELL,UR RARE /HPF
[2022-11-06] MEDS ORDERED: inSUlin (REGULAR) HUMAN 1 UNIT/0.01 ML (CHARGE PER UNIT) SC ONE (14:30)
--- NOTE | 2022-11-06 14:33 | Diagnostic Imaging Report ---
HISTORY: Weakness TECHNIQUE: Frontal view of the chest. COMPARISON: 02/19/2022 FINDINGS: Lung volumes are large. No consolidation is seen. There is no pleural effusion or pneumothorax. The cardiac silhouette is normal in size. IMPRESSION: 1. No acute pulmonary abnormality. Dictated by: Dictated on workstation # [id number]
[2022-11-06 16:21] VITALS: BP 128/68
== END 2022-11-06 16:21 | disposition home or self-care (01) ==
LOC: EDUNIT# 13:44 → ER 13:45
DX: E11.9 Type 2 diabetes mellitus without complications (principal); Z91.199 Patient's noncompliance with other medical treatment and regimen due to unspecified reason; F17.210 Nicotine dependence, cigarettes, uncomplicated; Z79.4 Long term (current) use of insulin; Z79.84 Long term (current) use of oral hypoglycemic drugs; Z20.822 Contact with and (suspected) exposure to COVID-19
CPT/HCPCS: 36415; 71045; 80053; 80306; 80320; 81000; 82010; 82150; 82947; 83036; 83605; 83690; 83735; 83874; 85007; 85027; 87636; 93041